=== PATIENT | male | born 1945 | race Caucasian/White ===

== ENCOUNTER → 2017-09-27 | Outpatient (CLI) | payer MEDICARE, OTHER ==
[~2017-09-27] MED LIST: ALBU90OI INH; CLOP75; FISH1000 PO; Lisinopril2.5 MG; Nitrostat0.3 MG SL; Norco 5-325 Ta1 EACH PO; PRED20 PO; ROSU10TA; TAMS.4ER; Tasprin325 MG PO
[2017-09-27 18:26] LABS: BASOPHILS ABSOLUTE AUTO 0.04 K/mm3 (0.00-0.23); BASOPHILS PERCENT AUTO 1 % (0-2); EOSINOPHILS ABSOLUTE AUTO 0.05 K/mm3 (0.00-0.68); EOSINOPHILS PERCENT AUTO 1 % (0-6); Hematocrit 47.4 % (37.0-53.0); Hemoglobin 16.7 g/dL (13.5-17.5); IMMATURE GRAN ABSOLUTE AUTO 0.04 K/mm3 (0.00-0.10); IMMATURE GRAN PERCENT AUTO 1 % (0-1); LYMPHOCYTES ABSOLUTE AUTO 1.63 K/mm3 (0.84-5.20); LYMPHOCYTES PERCENT AUTO 21 % (21-46); MONOCYTES ABSOLUTE AUTO 0.77 K/mm3 (0.16-1.47); MONOCYTES PERCENT AUTO 10 % (4-13); Mean Corpuscular HGB 32.3 pg (26.0-34.0); Mean Corpuscular HGB Conc 35.2 g/dL (31.5-36.5); Mean Corpuscular Volume 92 fL (80-100); Mean Platelet Volume 9.4 fL (9.1-12.4); NEUTROPHILS PERCENT AUTO 67 % (41-73); Platelet Count 203 K/mm3 (150-400); RDW Coefficient Variation 12.1 % (11.7-14.2); RDW Standard Deviation 40.6 fL (35.1-46.3); Red Blood Cell Count 5.17 M/mm3 (4.30-5.90); White Blood Cell Count 7.73 K/mm3 (4.00-11.30)
[2017-09-27 18:36] LABS: Alanine Aminotransfer (ALT/SGP 20 U/L (12-78); Albumin, Blood 4.3 g/dL (3.4-5.0); Albumin/Globulin Ratio 1.4 (0.8-1.8); Alk Phos 84 U/L (40-126); Anion Gap 9 mmol/L (6-16); Aspartate Aminotrans (AST/SGOT 17 U/L (12-37); Bilirubin, Total 0.9 mg/dL (0.1-1.0); Blood Urea Nitrogen 13 mg/dL (8-24); Bun/Creatinine Ratio 13.3 (12.0-20.0); CO2, Blood 27 mmol/L (21-32); Calcium, Blood 9.4 mg/dL (8.5-10.1); Chloride, Blood 100 mmol/L (98-108); Creatinine, Blood 0.98 mg/dL (0.60-1.20); Globulin, Blood 3.1 g/dL (2.2-4.0); Glomerular Filtration Rate >60 (60-); Glucose, Blood 111 mg/dL (70-99); Potassium, Blood 4.2 mmol/L (3.5-5.5); Sodium, Blood 136 mmol/L (136-145); Total Protein, Blood 7.4 g/dL (6.4-8.2)
== END ==
LOC: LAB SHORT 18:22 → LAB EV 18:22
PROVIDERS: Nurse Practitioner
DX: R63.4 Abnormal weight loss (principal)
CPT/HCPCS: 80053; 83690; 85025

== ENCOUNTER 2018-03-10 19:54 | Inpatient (IN) | payer MEDICARE, OTHER ==
[~2018-03-10] VITALS: Ht 175.3 cm; Wt 50.3 kg
[~2018-03-10 19:54] MED LIST changes: +ALBU2.5V5 NEB; +ANORO ELLIPTA1 EACH INH; +Amiodarone HCl200 MG PO; +CARV3.125 PO; +CLOP75 PO; +DOCU100 PO; +FISH OIL + D31 EACH PO; -FISH1000 PO; +GAVILAX17 GM PO; +LISI5 PO; +NITR.8TP TOP; +Nitroglycerin0.4 MG SL; +OXYC5 PO; +POTCHL10ER PO; -ROSU10TA; +ROSU10TA PO; +SPIR25 PO; -TAMS.4ER; +TAMS.4ER PO; +TORSE20 PO
[2018-03-10 21:50] LABS: Alanine Aminotransfer (ALT/SGP 22 U/L (12-78); Albumin, Blood 2.5 g/dL (3.4-5.0); Albumin/Globulin Ratio 0.7 (0.8-1.8); Alk Phos 88 U/L (50-136); Anion Gap 7 mmol/L (6-16); Aspartate Aminotrans (AST/SGOT 20 U/L (12-37); Bilirubin, Total 0.4 mg/dL (0.1-1.0); Blood Urea Nitrogen 16 mg/dL (8-24); Bun/Creatinine Ratio 20.7 (12.0-20.0); CO2, Blood 27 mmol/L (21-32); Calcium, Blood 8.4 mg/dL (8.5-10.1); Chloride, Blood 100 mmol/L (98-108); Creatinine, Blood 0.77 mg/dL (0.60-1.20); Globulin, Blood 3.7 g/dL (2.2-4.0); Glomerular Filtration Rate >60 (60-); Glucose, Blood 117 mg/dL (70-99); Potassium, Blood 4.7 mmol/L (3.5-5.5); Sodium, Blood 134 mmol/L (136-145); Total Protein, Blood 6.2 g/dL (6.4-8.2)
[2018-03-10 22:09] LABS: BASOPHILS ABSOLUTE AUTO 0.03 K/mm3 (0.00-0.23); BASOPHILS PERCENT AUTO 0 % (0-2); EOSINOPHILS ABSOLUTE AUTO 0.06 K/mm3 (0.00-0.68); EOSINOPHILS PERCENT AUTO 1 % (0-6); Hematocrit 38.2 % (37.0-53.0); Hemoglobin 12.6 g/dL (13.5-17.5); IMMATURE GRAN ABSOLUTE AUTO 0.03 K/mm3 (0.00-0.10); IMMATURE GRAN PERCENT AUTO 0 % (0-1); LYMPHOCYTES ABSOLUTE AUTO 0.46 K/mm3 (0.84-5.20); LYMPHOCYTES PERCENT AUTO 6 % (21-46); MONOCYTES PERCENT AUTO 9 % (4-13); Mean Corpuscular Volume 100 fL (80-100); Mean Platelet Volume 9.1 fL (9.1-12.4); NEUTROPHILS ABSOLUTE AUTO 6.47 K/mm3 (1.96-9.15); NEUTROPHILS PERCENT AUTO 84 % (41-73); Platelet Count 260 K/mm3 (150-400); RDW Coefficient Variation 14.9 % (11.7-14.2); Red Blood Cell Count 3.82 M/mm3 (4.30-5.90); White Blood Cell Count 7.75 K/mm3 (4.00-11.30)
[2018-03-10] MEDS ORDERED: ENTRESTO 24 MG1 EACH PO (22:58)
[2018-03-10] MEDS ORDERED: TRAZ50 PO (22:59)
[2018-03-10] MEDS ORDERED: METO25ER PO (22:59)
[2018-03-11 02:21] LABS: Adenovirus Not Detected (NOT DETECT); Bordetella pertussis Not Detected (NOT DETECT); Chlamydophila pneumoniae Not Detected (NOT DETECT); Coronavirus 229E Not Detected (NOT DETECT); Coronavirus HKU1 Not Detected (NOT DETECT); Coronavirus NL63 Not Detected (NOT DETECT); Coronavirus OC43 Not Detected (NOT DETECT); Human Metapneumovirus Not Detected (NOT DETECT); Human Rhinovirus/Enterovirus Not Detected (NOT DETECT); Influenza A/2009-H1 Not Detected (NOT DETECT); Influenza A/H1 Not Detected (NOT DETECT); Influenza A/H3 Not Detected (NOT DETECT); Influenza B Not Detected (NOT DETECT); Mycoplasma pneumoniae Not Detected (NOT DETECT); Parainfluenza Virus 1 Not Detected (NOT DETECT); Parainfluenza Virus 2 Not Detected (NOT DETECT); Parainfluenza Virus 3 Not Detected (NOT DETECT); Parainfluenza Virus 4 Not Detected (NOT DETECT); Respiratory Syncytial Virus Not Detected (NOT DETECT)
[2018-03-11 03:40] LABS: Influenza A Not Detected (NOT DETECT)
[2018-03-11 04:19] LABS: Hematocrit 37.5 % (37.0-53.0); Hemoglobin 12.3 g/dL (13.5-17.5); Mean Corpuscular HGB 32.7 pg (26.0-34.0); Mean Corpuscular HGB Conc 32.8 g/dL (31.5-36.5); Mean Corpuscular Volume 100 fL (80-100); Mean Platelet Volume 8.9 fL (9.1-12.4); Platelet Count 233 K/mm3 (150-400); RDW Coefficient Variation 14.9 % (11.7-14.2); RDW Standard Deviation 55.3 fL (35.1-46.3); Red Blood Cell Count 3.76 M/mm3 (4.30-5.90)
[2018-03-11 04:37] LABS: Alanine Aminotransfer (ALT/SGP 20 U/L (12-78); Albumin, Blood 2.3 g/dL (3.4-5.0); Albumin/Globulin Ratio 0.6 (0.8-1.8); Alk Phos 76 U/L (50-136); Anion Gap 8 mmol/L (6-16); Aspartate Aminotrans (AST/SGOT 10 U/L (12-37); Bilirubin, Total 0.4 mg/dL (0.1-1.0); Blood Urea Nitrogen 14 mg/dL (8-24); Bun/Creatinine Ratio 17.1 (12.0-20.0); CO2, Blood 28 mmol/L (21-32); Calcium, Blood 8.1 mg/dL (8.5-10.1); Chloride, Blood 101 mmol/L (98-108); Creatinine, Blood 0.82 mg/dL (0.60-1.20); Globulin, Blood 3.6 g/dL (2.2-4.0); Glomerular Filtration Rate >60 (60-); Glucose, Blood 114 mg/dL (70-99); Potassium, Blood 3.5 mmol/L (3.5-5.5); Sodium, Blood 137 mmol/L (136-145); Total Protein, Blood 5.9 g/dL (6.4-8.2)
[2018-03-11 04:39] LABS: Troponin I 0.064 ng/mL (0.000-0.040)
[2018-03-11 09:24] LABS: Troponin I 0.07 ng/mL (0.000-0.040)
[2018-03-12 05:46] LABS: Anion Gap 9 mmol/L (6-16); Blood Urea Nitrogen 21 mg/dL (8-24); Bun/Creatinine Ratio 26.2 (12.0-20.0); CO2, Blood 29 mmol/L (21-32); Calcium, Blood 8.3 mg/dL (8.5-10.1); Chloride, Blood 100 mmol/L (98-108); Glomerular Filtration Rate >60 (60-); Glucose, Blood 109 mg/dL (70-99); Sodium, Blood 138 mmol/L (136-145)
[2018-03-13 06:53] LABS: Anion Gap 7 mmol/L (6-16); Blood Urea Nitrogen 25 mg/dL (8-24); Bun/Creatinine Ratio 31.7 (12.0-20.0); CO2, Blood 27 mmol/L (21-32); Calcium, Blood 8.5 mg/dL (8.5-10.1); Chloride, Blood 101 mmol/L (98-108); Creatinine, Blood 0.79 mg/dL (0.60-1.20); Glomerular Filtration Rate >60 (60-); Glucose, Blood 98 mg/dL (70-99); Potassium, Blood 4.6 mmol/L (3.5-5.5); Sodium, Blood 135 mmol/L (136-145)
[2018-03-13] MEDS ORDERED: ACET325 PO (13:22)
[2018-03-13] MEDS ORDERED: DOCU100 PO (13:23)
[2018-03-13] MEDS ORDERED: CARV3.125 PO (13:24)
[2018-03-13] MEDS ORDERED: SYNTHROID25 MCG PO (13:26)
[2018-03-13] MEDS ORDERED: SPIR25 PO (13:28)
[2018-03-13] MEDS ORDERED: ASPI81CH PO (13:28)
== END 2018-03-13 14:19 | disposition home or self-care (01) | DRG 291 ==
LOC: ER 19:54 → MEDS 22:55
PROVIDERS: Emergency Medicine; Internal Medicine
DX: I11.0 Hypertensive heart disease with heart failure (principal); J96.01 Acute respiratory failure with hypoxia; Z68.1 Body mass index [BMI] 19.9 or less, adult; J98.11 Atelectasis; E44.0 Moderate protein-calorie malnutrition; R64 Cachexia; I50.41 Acute combined systolic (congestive) and diastolic (congestive) heart failure; E78.5 Hyperlipidemia, unspecified; I25.10 Atherosclerotic heart disease of native coronary artery without angina pectoris; Z95.1 Presence of aortocoronary bypass graft; I95.9 Hypotension, unspecified; J44.9 Chronic obstructive pulmonary disease, unspecified; I25.5 Ischemic cardiomyopathy; N20.0 Calculus of kidney
CPT/HCPCS: 36415; 36416; 71046; 80048; 80053; 82550; 83605; 83880; 84145; 84443; 84484; 85025; 85027; 87040; 87070; 87106; 87205; 87486; 87581; 87633; 87798; 93005; 93010; 94640; 94760; 94761; 94762; 96365; 96366; 96375; 99285-25; J0696; J1650; J1940; J1956; J2543; J2930; J7040; J7050

== ENCOUNTER → 2018-05-05 | Outpatient (CLI) | payer MEDICARE, OTHER ==
[~2018-05-05] MED LIST changes: +ACET325 PO; +ASPI81CH PO; +ENTRESTO 24 MG1 EACH PO; +METO25ER PO; +SYNTHROID25 MCG PO; +TRAZ50 PO
== END | disposition home or self-care (01) ==
LOC: LAB SHORT 07:35 → PLD 07:35
DX: L57.0 Actinic keratosis (principal)
CPT/HCPCS: 88305

== ENCOUNTER 2018-06-03 09:23 | Inpatient (IN) | payer MEDICARE, OTHER ==
[~2018-06-03] VITALS: Ht 175.3 cm; Wt 58.5 kg
[~2018-06-03 09:23] MED LIST changes: -ENTRESTO 24 MG1 EACH PO; -POTCHL10ER PO; -TAMS.4ER PO
[2018-06-03 10:34] LABS: BASOPHILS ABSOLUTE AUTO 0.02 K/mm3 (0.00-0.23); BASOPHILS PERCENT AUTO 0 % (0-2); EOSINOPHILS PERCENT AUTO 0 % (0-6); Hematocrit 43.7 % (37.0-53.0); Hemoglobin 14.3 g/dL (13.5-17.5); IMMATURE GRAN ABSOLUTE AUTO 0.03 K/mm3 (0.00-0.10); IMMATURE GRAN PERCENT AUTO 0 % (0-1); LYMPHOCYTES ABSOLUTE AUTO 0.22 K/mm3 (0.84-5.20); LYMPHOCYTES PERCENT AUTO 3 % (21-46); MONOCYTES ABSOLUTE AUTO 0.72 K/mm3 (0.16-1.47); MONOCYTES PERCENT AUTO 10 % (4-13); Mean Corpuscular HGB 31.6 pg (26.0-34.0); Mean Corpuscular HGB Conc 32.7 g/dL (31.5-36.5); Mean Corpuscular Volume 97 fL (80-100); Mean Platelet Volume 9.8 fL (9.1-12.4); NEUTROPHILS ABSOLUTE AUTO 6.14 K/mm3 (1.96-9.15); NEUTROPHILS PERCENT AUTO 86 % (41-73); Platelet Count 179 K/mm3 (150-400); RDW Coefficient Variation 14.5 % (11.7-14.2); RDW Standard Deviation 51.6 fL (35.1-46.3); Red Blood Cell Count 4.53 M/mm3 (4.30-5.90); White Blood Cell Count 7.13 K/mm3 (4.00-11.30)
[2018-06-03 11:00] LABS: Alanine Aminotransfer (ALT/SGP 15 U/L (12-78); Albumin, Blood 3.8 g/dL (3.4-5.0); Albumin/Globulin Ratio 1.2 (0.8-1.8); Alk Phos 73 U/L (50-136); Anion Gap 7 mmol/L (6-16); Aspartate Aminotrans (AST/SGOT 6 U/L (12-37); Bilirubin, Total 0.6 mg/dL (0.1-1.0); Blood Urea Nitrogen 11 mg/dL (8-24); Bun/Creatinine Ratio 13.6 (12.0-20.0); CO2, Blood 26 mmol/L (21-32); Calcium, Blood 8.6 mg/dL (8.5-10.1); Chloride, Blood 103 mmol/L (98-108); Creatinine, Blood 0.81 mg/dL (0.60-1.20); Globulin, Blood 3.1 g/dL (2.2-4.0); Glomerular Filtration Rate >60 (60-); Glucose, Blood 123 mg/dL (70-99); Potassium, Blood 3.7 mmol/L (3.5-5.5); Sodium, Blood 136 mmol/L (136-145); Total Protein, Blood 6.9 g/dL (6.4-8.2); Troponin I 0.053 ng/mL (0.000-0.040)
[2018-06-03 11:03] LABS: BASOPHILS PERCENT MAN 0 % (0-2); EOSINOPHILS PERCENT MAN 0 % (0-6); LYMPHOCYTES ABSOLUTE MAN 0.21 K/mm3 (0.84-5.20); LYMPHOCYTES PERCENT MAN 3 % (21-46); MONOCYTES ABSOLUTE MAN 0.57 K/mm3 (0.16-1.47); MONOCYTES PERCENT MAN 8 % (4-13); NEUTROPHILS ABSOLUTE MAN 6.34 K/mm3 (1.96-9.15); SEG NEUTROPHILS PERCENT MAN 89 % (41-73); TOTAL CELLS COUNTED 100
[2018-06-03] MEDS ORDERED: TAMS.4ER PO ×2 (14:29→15:28)
[2018-06-03] MEDS ORDERED: ROSU10TA PO (14:29)
[2018-06-03] MEDS ORDERED: ENTRESTO 24 MG1 EACH PO ×2 (14:30→15:29)
[2018-06-03] MEDS ORDERED: QVAR REDIHALE10.6 GM IH (14:32)
[2018-06-03] MEDS ORDERED: ALBU3IS INH (15:28)
[2018-06-03] MEDS ORDERED: ASPI81CH PO (15:30)
[2018-06-03] MEDS ORDERED: Synthroid50 MCG PO (15:30)
[2018-06-03] MEDS ORDERED: POTCHL10ER PO (15:30)
[2018-06-03] MEDS ORDERED: TRAZ50 PO (15:32)
[2018-06-03] MEDS ORDERED: SPIR25 PO (15:34)
[2018-06-03] MEDS ORDERED: NITR.6SL SL (15:42)
[2018-06-03] MEDS ORDERED: CLOP75 PO (16:23)
[2018-06-03] MEDS ORDERED: METO25ER PO (16:23)
[2018-06-03] MEDS ORDERED: DOCU100 PO (16:24)
[2018-06-04 05:55] LABS: BASOPHILS ABSOLUTE AUTO 0.01 K/mm3 (0.00-0.23); BASOPHILS PERCENT AUTO 0 % (0-2); EOSINOPHILS PERCENT AUTO 0 % (0-6); Hematocrit 42.4 % (37.0-53.0); Hemoglobin 14.3 g/dL (13.5-17.5); IMMATURE GRAN ABSOLUTE AUTO 0.05 K/mm3 (0.00-0.10); IMMATURE GRAN PERCENT AUTO 1 % (0-1); LYMPHOCYTES ABSOLUTE AUTO 0.29 K/mm3 (0.84-5.20); LYMPHOCYTES PERCENT AUTO 3 % (21-46); MONOCYTES ABSOLUTE AUTO 0.37 K/mm3 (0.16-1.47); MONOCYTES PERCENT AUTO 4 % (4-13); Mean Corpuscular HGB 31.4 pg (26.0-34.0); Mean Corpuscular HGB Conc 33.7 g/dL (31.5-36.5); Mean Platelet Volume 9.9 fL (9.1-12.4); NEUTROPHILS ABSOLUTE AUTO 9.56 K/mm3 (1.96-9.15); NEUTROPHILS PERCENT AUTO 93 % (41-73); Platelet Count 195 K/mm3 (150-400); RDW Standard Deviation 51.8 fL (35.1-46.3); Red Blood Cell Count 4.55 M/mm3 (4.30-5.90); White Blood Cell Count 10.28 K/mm3 (4.00-11.30)
[2018-06-04 05:56] LABS: Mean Corpuscular Volume 93 fL (80-100)
[2018-06-04 06:10] LABS: Anion Gap 9 mmol/L (6-16); Blood Urea Nitrogen 18 mg/dL (8-24); Bun/Creatinine Ratio 20.5 (12.0-20.0); CO2, Blood 27 mmol/L (21-32); Chloride, Blood 99 mmol/L (98-108); Creatinine, Blood 0.88 mg/dL (0.60-1.20); Glomerular Filtration Rate >60 (60-); Glucose, Blood 132 mg/dL (70-99); Potassium, Blood 3.7 mmol/L (3.5-5.5); Sodium, Blood 135 mmol/L (136-145)
--- NOTE | 2018-06-04 10:51 | NUR ---
REMOVED 02 FROM PT LYING IN BED ON RA, PT SATS 93%. AMBULATED 100 FEET. UPON RETURNING TO ROOM, 02 SATS 94%.
--- NOTE | 2018-06-04 14:10 | NUR ---
pt resting in bed respirations easy on ra. spouse at bedside. pt wishes to be discharged today.
[2018-06-04] MEDS ORDERED: CEFD300 PO (16:19)
[2018-06-04] MEDS ORDERED: FURO20 PO (16:21)
[2018-06-04] MEDS ORDERED: PRED10 PO (16:23)
--- NOTE | 2018-06-04 18:04 | NUR ---
discharged PT DC'D. REVIEWED DC PAPERWORK; PT AND SPOUSE VERBALIZED UNDERSTANDING. DC'D IV, CATHETER INTACT. CALLED PRESCRIPTIONS IN TO [facility] PER PT REQUEST. PT LEFT UNIT IN WC ACCOMPANIED BY FAMILY W/POSSESSIONS AND DC PAPERWORK IN HAND.
== END 2018-06-04 17:30 | disposition home or self-care (01) | DRG 292 ==
LOC: ER 09:23 → ERHOLD 14:36 → SURS 21:02
PROVIDERS: Physician Assistant; ADMIT Internal Medicine
DX: I11.0 Hypertensive heart disease with heart failure (principal); J44.1 Chronic obstructive pulmonary disease with (acute) exacerbation; J44.0 Chronic obstructive pulmonary disease with (acute) lower respiratory infection; I24.8 Other forms of acute ischemic heart disease; I50.43 Acute on chronic combined systolic (congestive) and diastolic (congestive) heart failure; J20.9 Acute bronchitis, unspecified; I25.10 Atherosclerotic heart disease of native coronary artery without angina pectoris; E78.5 Hyperlipidemia, unspecified; I48.0 Paroxysmal atrial fibrillation; R49.0 Dysphonia; I25.5 Ischemic cardiomyopathy; Z95.1 Presence of aortocoronary bypass graft; Z87.891 Personal history of nicotine dependence; Z79.01 Long term (current) use of anticoagulants; Z79.82 Long term (current) use of aspirin; Z79.899 Other long term (current) drug therapy
CPT/HCPCS: 36415; 71046; 80048; 80053; 83880; 84484; 85025; 93005; 93010; 94640; 94760; 96374; 99285-25; J0696; J1650; J1940; J2930

== ENCOUNTER 2018-06-08 09:03 | Inpatient (IN) | payer MEDICARE, OTHER ==
[~2018-06-08] VITALS: Ht 167.6 cm; Wt 58.6 kg
[~2018-06-08 09:03] MED LIST changes: +ALBU3IS INH; +CEFD300 PO; +ENTRESTO 24 MG1 EACH PO; +FURO20 PO; +NITR.6SL SL; +POTCHL10ER PO; +PRED10 PO; +QVAR REDIHALE10.6 GM IH; +Synthroid50 MCG PO; +TAMS.4ER PO
[2018-06-08 09:25] LABS: PCO2 Arterial 61.3 mmHg (35-45); PO2 Arterial 63.8 mmHg (80-100); pH Blood Arterial 7.23 (7.35-7.45)
[2018-06-08 09:28] LABS: BASOPHILS ABSOLUTE AUTO 0.01 K/mm3 (0.00-0.23); BASOPHILS PERCENT AUTO 0 % (0-2); EOSINOPHILS ABSOLUTE AUTO 0.04 K/mm3 (0.00-0.68); EOSINOPHILS PERCENT AUTO 1 % (0-6); Hematocrit 48.9 % (37.0-53.0); Hemoglobin 15.7 g/dL (13.5-17.5); IMMATURE GRAN ABSOLUTE AUTO 0.02 K/mm3 (0.00-0.10); IMMATURE GRAN PERCENT AUTO 0 % (0-1); LYMPHOCYTES ABSOLUTE AUTO 2.47 K/mm3 (0.84-5.20); LYMPHOCYTES PERCENT AUTO 33 % (21-46); MONOCYTES ABSOLUTE AUTO 0.82 K/mm3 (0.16-1.47); MONOCYTES PERCENT AUTO 11 % (4-13); Mean Corpuscular HGB 31.3 pg (26.0-34.0); Mean Corpuscular HGB Conc 32.1 g/dL (31.5-36.5); Mean Platelet Volume 10.2 fL (9.1-12.4); NEUTROPHILS ABSOLUTE AUTO 4.22 K/mm3 (1.96-9.15); NEUTROPHILS PERCENT AUTO 56 % (41-73); Platelet Count 207 K/mm3 (150-400); RDW Coefficient Variation 14.1 % (11.7-14.2); RDW Standard Deviation 51.4 fL (35.1-46.3); Red Blood Cell Count 5.02 M/mm3 (4.30-5.90); White Blood Cell Count 7.58 K/mm3 (4.00-11.30)
[2018-06-08 09:35] LABS: Mean Corpuscular Volume 97 fL (80-100)
[2018-06-08 09:48] LABS: Alanine Aminotransfer (ALT/SGP 43 U/L (12-78); Albumin, Blood 3.4 g/dL (3.4-5.0); Albumin/Globulin Ratio 1.1 (0.8-1.8); Alk Phos 71 U/L (50-136); Anion Gap 7 mmol/L (6-16); Aspartate Aminotrans (AST/SGOT 40 U/L (12-37); Bilirubin, Total 0.6 mg/dL (0.1-1.0); Blood Urea Nitrogen 17 mg/dL (8-24); Bun/Creatinine Ratio 18.1 (12.0-20.0); CO2, Blood 27 mmol/L (21-32); Calcium, Blood 8.5 mg/dL (8.5-10.1); Chloride, Blood 106 mmol/L (98-108); Creatinine, Blood 0.94 mg/dL (0.60-1.20); Glomerular Filtration Rate >60 (60-); Glucose, Blood 183 mg/dL (70-99); Magnesium, Blood 2.4 mg/dL (1.6-2.4); Potassium, Blood 4.4 mmol/L (3.5-5.5); Sodium, Blood 140 mmol/L (136-145); Total Protein, Blood 6.4 g/dL (6.4-8.2); Troponin I 0.057 ng/mL (0.000-0.040)
[2018-06-08 11:04] LABS: PCO2 Arterial 48.3 mmHg (35-45); PO2 Arterial 173 mmHg (80-100); pH Blood Arterial 7.32 (7.35-7.45)
--- NOTE | 2018-06-08 12:30 | NUR ---
INITIAL ASSESSMENT PATIENT ARRIVED TO UNIT FROM ER AT 1210 WITH AT BEDSIDE. PATIENT ALERT AND ORIENTED X 4, AFEBRILE. PATIENT APPEARS ILL LOOKING AND DECONDITIONED. PATIENT WEAK BUT ABLE TO MOVE ALL EXTREMITIES. PATIENT REPORTS N/T IN FEET BUT THAT IT IS NORMAL FOR HIM. PATIENT DENIES PAIN. PATIENT SATTING 92% AND GREATER ON BIPAP 12/8, 30% FIO2. LUNGS DIMINISHED WITH EXPIRATORY COARSENESS T/O. EXPIRATORY WHEEZES ALSO NOTED IN LOWER LOBES. PATIENT STATES THAT HE HAS OCCASIONAL PRODUCTIVE COUGH AND WILL COUGH UP SMALL AMOUNTS OF THICK, GREEN SPUTUM FROM TIME TO TIME. PATIENT IN ST WITH FREQUENT PVCS, HR LOW 100S TO 120S. BP STABLE. GI WNL. WNL. BLADDER SCAN SHOWED 176 ML URINE LEFT IN BLADDER AFTER VOIDING SO NO CATHETER PLACED AT THIS TIME. URINE LIGHT YELLOW IN COLOR. PATIENT USING URINAL ON OWN. SKIN COLD AND PALE. NO WOUND NOTED AT THIS TIME. IVS FLUSHED AND SALINE LOCKED. BED LOW, CALL LIGHT IN REACH. PATIENT ORIENTED TO UNIT AND CALL SYSTEM. WILL CONTINUE TO MONITOR PATIENT FREQUENTLY THROUGHOUT SHIFT.
[2018-06-08] MEDS ORDERED: ROSU10TA PO (15:16)
[2018-06-08] MEDS ORDERED: QVAR REDIHALE10.6 G1 INH (15:20)
[2018-06-08] MEDS ORDERED: ANORO ELLIPTA1 EACH INH (15:21)
--- NOTE | 2018-06-08 16:00 | NUR ---
VITAL SIGNS STABLE. PATIENT SATTING WELL ON 2 L NC. AFEBRILE. NO COMPLAINTS. NO OTHER ACUTE CHANGES TO NOTE ON AT THIS TIME. WILL CONTINUE TO MONITOR.
[2018-06-08 16:40] LABS: Influenza A Negative (NEGATIVE); Influenza B Negative (NEGATIVE)
--- NOTE | 2018-06-08 17:31 | NUR ---
DR. ESPINOSA NOTIFIED THAT PATIENT IS FLU NEGATIVE. WELL THAT THE PATIENT HAS BEEN SATTING WELL ON 2 L NC.
--- NOTE | 2018-06-08 18:33 | NUR ---
SHIFT SUMMARY PATIENT REMAINS ALERT AND ORIENTED X 4. [place]. SPEAKING TO WAREHOUSE SORTER CURRENTLY. PATIENT REMAINS AFEBRILE. PATIENT COMPLAINED OF HEADACHE OT- PRN TYLENOL GIVEN AND PATIENT REPORTED RELIEF. PATIENT ON BIPAP WHEN CAME TO UNIT; 03/01, 30% FIO2. PATIENT CHANGED TO 2 L NC AROUND 1600 AND HAS BEEN SATTING ABOVE 92%. LUNGS NOW DIMINISHED THROUGHOUT. EXPIRATORY WHEEZE NOTED IN BILL. PATIENT CONTINUES TO HAVE OCCASIONAL PRODUCTIVE COUGH- SMALL AMOUNT OF THICK, GREEN SPUTUM. PATIENT HAS REMAINED IN ST WITH FREQUENT PVCS. HR LOW 100S TO 120S. BP HAS REMAINED STABLE. ANTIEMBOLISM STOCKINGS IN PLACE. GI REMAINED WNL. REMAINS WNL. PATIENT VOIDING LIGHT YELLOW URINE INTO BEDSIDE URINAL. NO CHANGES IN SKIN. NS INFUSING TKO WITH ANTIBIOTICS. PATIENT RECEIVED FLU SHOT. FLU SWAB SENT AND CAME BACK NEGATIVE. PATIENT HAS NO COMPLAINTS AT THIS TIME. BED LOW, CALL LIGHT IN REACH. WILL CONTINUE TO MONITOR PATIENT UNTIL REPORT GIVEN TO ONCOMING SECURITY FIELD SUPERVISOR NURSE SHORTLY.
--- NOTE | 2018-06-08 19:53 | NUR ---
CARE ASSUMED - NITRO PLACEMENT REPORT RECEIVED, CARE ASSUMED AT 1900 FROM JI HILTON. SPOKE WITH DR. ESPINOSA WITH LIDA RN PRESENT TO CONFIRM NITRO ORDER AND SHARE PT'S MOST RECENT VITAL SIGNS. VITALS INITIALLY STABLE. HR SINUS TACH WITH FREQUENT PVC'S. DR. ESPINOSA AWARE. NITRO PLACED AND PT'S BP RAPIDLY DECREASED. SEE FLOWSHEET. PT REPORTS FEELING LIGHTHEADED BUT CONTINUES TO BE CALM AND TALKATIVE. REPORTS SLIGHT SHORTNESS OF BREATH BUT 02 SATURATIONS IN 90'S ON 2 LPM NASAL CANNULA. RR 12-24. PT DENIES CHEST PAIN. SEE FULL SHIFT ASSESSMENT. VITALS Q15 UNTIL STABLE. PT LEFT WITH CALL LIGHT IN REACH, AGREES TO CALL APPROPRIATELY FOR NEEDS.
--- NOTE | 2018-06-08 20:08 | NUR ---
DR. ESPINOSA COMMUNICATION DR. ESPINOSA UPDATED REGARDING NITRO PLACEMENT, BLOOD PRESSURE, HR & PVC'S. NEW ORDER TO DC FUTURE NITRO DOSES. PER DR. ESPINOSA, CONTINUE WITH SCHEDULED METOPROLOL IF SYSTOLIC RECOVERS TO GREATER THAN 100.
--- NOTE | 2018-06-08 20:30 | NUR ---
DR. ESPINOSA COMMUNICATION DISCUSSED PT'S LABS INCLUDING LACTIC AND BNP WITH DR. ESPINOSA. NEW ORDER FOR 250 ML/HR BOLUS. CONTINUE WITH SCHEDULED LABS IN MORNING ORDERED.
[2018-06-09 02:53] LABS: BASOPHILS PERCENT AUTO 0 % (0-2); EOSINOPHILS PERCENT AUTO 0 % (0-6); Hematocrit 41.7 % (37.0-53.0); Hemoglobin 13.9 g/dL (13.5-17.5); IMMATURE GRAN ABSOLUTE AUTO 0.01 K/mm3 (0.00-0.10); IMMATURE GRAN PERCENT AUTO 0 % (0-1); LYMPHOCYTES ABSOLUTE AUTO 0.41 K/mm3 (0.84-5.20); LYMPHOCYTES PERCENT AUTO 9 % (21-46); MONOCYTES ABSOLUTE AUTO 0.27 K/mm3 (0.16-1.47); MONOCYTES PERCENT AUTO 6 % (4-13); Mean Corpuscular HGB Conc 33.3 g/dL (31.5-36.5); Mean Corpuscular Volume 96 fL (80-100); Mean Platelet Volume 10.3 fL (9.1-12.4); NEUTROPHILS ABSOLUTE AUTO 4.05 K/mm3 (1.96-9.15); NEUTROPHILS PERCENT AUTO 86 % (41-73); Platelet Count 158 K/mm3 (150-400); RDW Coefficient Variation 14.5 % (11.7-14.2); RDW Standard Deviation 50.5 fL (35.1-46.3); Red Blood Cell Count 4.34 M/mm3 (4.30-5.90); White Blood Cell Count 4.74 K/mm3 (4.00-11.30)
[2018-06-09 03:13] LABS: Albumin, Blood 3.2 g/dL (3.4-5.0); Anion Gap 8 mmol/L (6-16); Blood Urea Nitrogen 23 mg/dL (8-24); Bun/Creatinine Ratio 27.7 (12.0-20.0); CO2, Blood 26 mmol/L (21-32); Calcium, Blood 8.4 mg/dL (8.5-10.1); Chloride, Blood 105 mmol/L (98-108); Creatinine, Blood 0.83 mg/dL (0.60-1.20); Glomerular Filtration Rate >60 (60-); Glucose, Blood 136 mg/dL (70-99); Phosphorus, Blood 3.7 mg/dL (2.5-4.9); Potassium, Blood 4.5 mmol/L (3.5-5.5); Sodium, Blood 139 mmol/L (136-145); Troponin I 0.109 ng/mL (0.000-0.040)
--- NOTE | 2018-06-09 05:04 | NUR ---
DR. ESPINOSA COMMUNICATION UPDATED DR. ESPINOSA ON EVENTS OF NIGHT INCLUDING NO METOPROLOL ADMINISTRATION, REPEAT LACTIC, REPEAT TROPONIN, BLOOD PRESSURES, HEART RATE AND PVCS. CONTINUE TO MONITOR PER ORDERS.
--- NOTE | 2018-06-09 06:03 | NUR ---
SUMMARY SEE PREVIOUS NOTES. OTHERWISE, PT HAS TOLERATED BIPAP WELL WHEN PROVIDED WITH FREQUENT BREAKS. PT HAS CALLED APPROPRIATELY FOR NEEDS, REPOSITIONED SELF IN BED. PT HAS DENIED PAIN THROUGHOUT NIGHT. SEE ASSESSMENTS/FLOWSHEETS.
--- NOTE | 2018-06-09 10:25 | NUR ---
0810 PT SETTING UP IN BED ON O2 2L W/O DISTRESS. RT IN TO WORK WITH PT AND THEN MOVED TO RA AND SATING WELL. PT DENIES ANY PAIN OR DISTRESS. VOIDING WELL OR ORANGE CLEAR URINE THIS AM. PO IN SMALL AMOUNTS.
--- NOTE | 2018-06-09 12:15 | NUR ---
1210 REPORT CALLED TO REECE WORKMAN AND WILL TRANSFER PT TO 340 VIA W/C HARLEEN AFTER LUUNCH.
--- NOTE | 2018-06-09 16:17 | NUR ---
Mr. Lundberg has a karen josselyn in an active and present God. We spoke at length about his josselyn. He responded well to gentle spiritual direction and prayer. He has a strong, loving marriage and good support of friends. He beleives he will recover and return home soon. I will remain available.
--- NOTE | 2018-06-09 18:06 | NUR ---
ALERT AND ORIENTED. ARRIVES AFTER LUNCH FROM ICU. STEADY GAIT. IV PATENT. LOW HARSH SOUNDING VOICE POST INTUBATION. LUNGS DIM T/O .PLEASANT. COOPERATIVE. ABLE TO MAKE NEEDS KNOWN. BED IN LOW POSITION. CALL LIGHT WITHIN REACH. TELE ON. WILL CONTINUE TO MONITOR.
[2018-06-10 05:12] LABS: BASOPHILS PERCENT AUTO 0 % (0-2); EOSINOPHILS PERCENT AUTO 0 % (0-6); Hemoglobin 14.1 g/dL (13.5-17.5); IMMATURE GRAN ABSOLUTE AUTO 0.04 K/mm3 (0.00-0.10); IMMATURE GRAN PERCENT AUTO 1 % (0-1); LYMPHOCYTES PERCENT AUTO 6 % (21-46); MONOCYTES PERCENT AUTO 5 % (4-13); Mean Corpuscular HGB 31.1 pg (26.0-34.0); Mean Corpuscular HGB Conc 32.8 g/dL (31.5-36.5); Mean Corpuscular Volume 95 fL (80-100); Mean Platelet Volume 10.2 fL (9.1-12.4); NEUTROPHILS ABSOLUTE AUTO 7.04 K/mm3 (1.96-9.15); NEUTROPHILS PERCENT AUTO 88 % (41-73); Platelet Count 169 K/mm3 (150-400); RDW Coefficient Variation 14.6 % (11.7-14.2); RDW Standard Deviation 51.1 fL (35.1-46.3); Red Blood Cell Count 4.54 M/mm3 (4.30-5.90); White Blood Cell Count 7.98 K/mm3 (4.00-11.30)
--- NOTE | 2018-06-10 05:15 | NUR ---
VSS, AFEBRILE, A/O, PLEASANT, LOW BP AT 2000, METOPROLOL HELD AT 2100, TELE: NSR/PAC/PVC, INDEPENDENT TO BS, JULY D/C TODAY. SLEPT WELL OVERNOC.
[2018-06-10 05:30] LABS: Albumin, Blood 3.2 g/dL (3.4-5.0); Anion Gap 8 mmol/L (6-16); Blood Urea Nitrogen 20 mg/dL (8-24); Bun/Creatinine Ratio 27.9 (12.0-20.0); CO2, Blood 25 mmol/L (21-32); Calcium, Blood 8.6 mg/dL (8.5-10.1); Chloride, Blood 105 mmol/L (98-108); Creatinine, Blood 0.72 mg/dL (0.60-1.20); Glomerular Filtration Rate >60 (60-); Glucose, Blood 131 mg/dL (70-99); Phosphorus, Blood 2.6 mg/dL (2.5-4.9); Potassium, Blood 4.3 mmol/L (3.5-5.5); Sodium, Blood 138 mmol/L (136-145)
--- NOTE | 2018-06-10 06:50 | NUR ---
VSS, AFEBRILE, ASYMPTOMATIC. PT HAD A 7 BEAT RUN OF V-TACH AT 0643 TODAY. NO COMPLAINTS, UNSUSTAINED, WILL REPORT TO ON-COMING SHIFT.
--- NOTE | 2018-06-10 12:40 | NUR ---
LEFT MESSAGE ON VOICE MAIL THAT PATIENT HAS DEVELOPED A TICKLE AND COUGH AT NIGHT. ADVISED [facility].AWAITING ORDERS
--- NOTE | 2018-06-10 18:21 | NUR ---
PATIENT ALERT AND ORIENTED. TO USE BIPAP IF NEEDED TONIGHT. MAY HAVE SLEEP STUDY TOMORROW NIGHT. TELE ON. HAS SOME ANXIETY AND WHEN SEES CONTINUOUS SAT MONITOR DROP TO 90% GETS ANXIOUS. WALKED IN HALLWAY X 2 ON OXYGEN W/WALKER AND STANDBY ASSIST. COOPERATIVE. ABLE TO MAKE NEEDS KNOWN. PLEASANT. WILL CONTINUE TO MONITOR.
--- NOTE | 2018-06-11 05:05 | NUR ---
VSS, AFEBRILE, A/O, INDEPENDENT, BPAP OVERNOC BUT PT REMOVES IT AT WILL, SLEPT WELL, NO COMPLAINTS, TELE COMPUTER SYSTEMS ARCHITECT REPORTS IMPROVEMENT IN THE FREQUENCY OF PVC'S - DROPPING FROM 15 - 20 PVC'S TO LESS THAN 5.
[2018-06-11 05:36] LABS: BASOPHILS PERCENT AUTO 0 % (0-2); EOSINOPHILS PERCENT AUTO 0 % (0-6); Hematocrit 40.7 % (37.0-53.0); Hemoglobin 13.6 g/dL (13.5-17.5); IMMATURE GRAN ABSOLUTE AUTO 0.03 K/mm3 (0.00-0.10); IMMATURE GRAN PERCENT AUTO 1 % (0-1); LYMPHOCYTES ABSOLUTE AUTO 0.46 K/mm3 (0.84-5.20); LYMPHOCYTES PERCENT AUTO 9 % (21-46); MONOCYTES ABSOLUTE AUTO 0.34 K/mm3 (0.16-1.47); MONOCYTES PERCENT AUTO 7 % (4-13); Mean Corpuscular HGB 31.2 pg (26.0-34.0); Mean Corpuscular HGB Conc 33.4 g/dL (31.5-36.5); Mean Corpuscular Volume 93 fL (80-100); NEUTROPHILS ABSOLUTE AUTO 4.31 K/mm3 (1.96-9.15); NEUTROPHILS PERCENT AUTO 84 % (41-73); Platelet Count 169 K/mm3 (150-400); RDW Coefficient Variation 14.7 % (11.7-14.2); RDW Standard Deviation 50.9 fL (35.1-46.3); Red Blood Cell Count 4.36 M/mm3 (4.30-5.90); White Blood Cell Count 5.14 K/mm3 (4.00-11.30)
[2018-06-11 05:57] LABS: Albumin, Blood 2.9 g/dL (3.4-5.0); Anion Gap 6 mmol/L (6-16); Blood Urea Nitrogen 24 mg/dL (8-24); Bun/Creatinine Ratio 29.5 (12.0-20.0); CO2, Blood 30 mmol/L (21-32); Calcium, Blood 8.4 mg/dL (8.5-10.1); Chloride, Blood 105 mmol/L (98-108); Creatinine, Blood 0.81 mg/dL (0.60-1.20); Glomerular Filtration Rate >60 (60-); Glucose, Blood 131 mg/dL (70-99); Phosphorus, Blood 3.5 mg/dL (2.5-4.9); Potassium, Blood 4.2 mmol/L (3.5-5.5); Sodium, Blood 141 mmol/L (136-145)
[2018-06-11 05:59] LABS: Troponin I 0.059 ng/mL (0.000-0.040)
--- NOTE | 2018-06-11 09:51 | NUR ---
AWARE 4 RUN VTACH FEW TIMES.
--- NOTE | 2018-06-11 16:49 | NUR ---
ADVISED BLD PRESS 95/60 PUSLE HIGH 90'S TO 100 W/ MANY PVC'S. HOLD; ENTRESTO, POTASSIUM, LASIX?? PER HOLD LASIX AND POTASSIUM.
--- NOTE | 2018-06-11 17:39 | NUR ---
ALERT AND ORIENTED. HAS AMBULATED DOWN HALLWAY W/NURSING STAFF AND WITH P.T. TOLERATED WELL. HAS BEEN OFF OXYGEN IN ROOM WITH SATS LOW TO MID 90'S. AWARE WILL HAVE NIGHT OXYMETRY TONIGHT. IV PATENT. TELE ON AND PER TECH FREQUENT PVC'S W/MD AWARE. INDEPENDENT IN ROOM. USES URINAL. BED IN LOW POSITION. CALL LIGHT WITHIN REACH. ABLE TO MAKE NEEDS KNOWN. WILL CONTINUE TO MONITOR.
--- NOTE | 2018-06-12 04:35 | NUR ---
VSS, AFEBRILE, A/O, INDEPENDENT. PT PARTICIPATED IN SLEEP STUDY OVERNOC. PT WAS NOT DISTURBED BY STAFF UNTIL AFTER 0500. NO COMPLAINTS.
[2018-06-12 06:00] LABS: BASOPHILS PERCENT AUTO 0 % (0-2); EOSINOPHILS PERCENT AUTO 0 % (0-6); Hematocrit 42.4 % (37.0-53.0); Hemoglobin 13.9 g/dL (13.5-17.5); IMMATURE GRAN ABSOLUTE AUTO 0.04 K/mm3 (0.00-0.10); IMMATURE GRAN PERCENT AUTO 1 % (0-1); LYMPHOCYTES ABSOLUTE AUTO 0.67 K/mm3 (0.84-5.20); LYMPHOCYTES PERCENT AUTO 13 % (21-46); MONOCYTES PERCENT AUTO 12 % (4-13); Mean Corpuscular HGB Conc 32.8 g/dL (31.5-36.5); Mean Corpuscular Volume 95 fL (80-100); Mean Platelet Volume 10.7 fL (9.1-12.4); NEUTROPHILS PERCENT AUTO 74 % (41-73); Platelet Count 172 K/mm3 (150-400); RDW Coefficient Variation 14.8 % (11.7-14.2); RDW Standard Deviation 51.9 fL (35.1-46.3); Red Blood Cell Count 4.48 M/mm3 (4.30-5.90); White Blood Cell Count 5.01 K/mm3 (4.00-11.30)
[2018-06-12 06:21] LABS: Albumin, Blood 2.8 g/dL (3.4-5.0); Anion Gap 4 mmol/L (6-16); Blood Urea Nitrogen 27 mg/dL (8-24); CO2, Blood 29 mmol/L (21-32); Calcium, Blood 8.3 mg/dL (8.5-10.1); Chloride, Blood 107 mmol/L (98-108); Glomerular Filtration Rate >60 (60-); Glucose, Blood 108 mg/dL (70-99); Phosphorus, Blood 2.8 mg/dL (2.5-4.9); Sodium, Blood 140 mmol/L (136-145)
--- NOTE | 2018-06-12 16:51 | NUR ---
DISCHARGE SUMMARY PT A&Ox4, CALM AND COOPERATIVE WITH CARE. PT UP IND IN ROOM AND WALKING IN HALLS. PT DENIES PAIN AND N/V DURING SHIFT. SOB WITH EXERTION, >90% ON RA AND NONPRODUCTIVE, VOICE CONTINUES TO BE HOARSE. SLEEP STUDY AND HOME O2 EVALUATION COMPLETED, PT DOES NOT QUALIFY AT THIS TIME. VSS. NO OTHER ACUTE CHAGNES NOTED DURING SHIFT. PT/SPOUSE EDUCATED ON DISCHARGE INSTRUCTIONS, MEDICATIONS AND FOLLOW UP APPOINTMENTS. PRESCRIPTIONS FAXED TO [facility] [place]. PT LEFT ROOM VIA WHEELCHAIR AT 1312. PT STABLE UPON DISCHARGE.
== END 2018-06-12 13:14 | disposition home or self-care (01) | DRG 871 ==
LOC: ER 09:03 → ICUE 10:00 → ICUW 10:00 → MEDS 11:49 → ICUE 12:10 → MEDS 06-09 12:57 → ENPENDDIS 06-12 11:15 → MEDS 06-12 13:14
PROVIDERS: Emergency Medicine; Family Medicine; Internal Medicine Critical Care Medicine; ADMIT Internal Medicine
DX: A41.9 Sepsis, unspecified organism (principal); J96.02 Acute respiratory failure with hypercapnia; J96.01 Acute respiratory failure with hypoxia; I50.43 Acute on chronic combined systolic (congestive) and diastolic (congestive) heart failure; J44.1 Chronic obstructive pulmonary disease with (acute) exacerbation; R65.20 Severe sepsis without septic shock; I11.0 Hypertensive heart disease with heart failure; I25.10 Atherosclerotic heart disease of native coronary artery without angina pectoris; Z95.5 Presence of coronary angioplasty implant and graft; I48.0 Paroxysmal atrial fibrillation; Z79.01 Long term (current) use of anticoagulants; E78.5 Hyperlipidemia, unspecified; Z79.82 Long term (current) use of aspirin
CPT/HCPCS: 36415; 36600; 71045; 80053; 80069; 82803; 83605; 83735; 83880; 84484; 85025; 87040; 87804; 90686; 93005; 93010; 94640; 94644; 94660; 94760; 94761; 94762; 96374; 97110; 97116; 97162; 97165; 97530; 99285-25; G0008; J1650; J1940; J2543; J2920; J3370; J7050

== ENCOUNTER 2019-03-03 22:08 | Inpatient (IN) | payer MEDICARE, OTHER ==
[~2019-03-03] VITALS: Ht 175.3 cm; Wt 59.6 kg
[~2019-03-03 22:08] MED LIST changes: +QVAR REDIHALE10.6 G1 INH
[2019-03-03 22:26] LABS: BASOPHILS ABSOLUTE AUTO 0.03 K/mm3 (0.00-0.23); BASOPHILS PERCENT AUTO 0 % (0-2); EOSINOPHILS ABSOLUTE AUTO 0.01 K/mm3 (0.00-0.68); EOSINOPHILS PERCENT AUTO 0 % (0-6); Hematocrit 43.9 % (37.0-53.0); Hemoglobin 14.7 g/dL (13.5-17.5); IMMATURE GRAN ABSOLUTE AUTO 0.06 K/mm3 (0.00-0.10); IMMATURE GRAN PERCENT AUTO 1 % (0-1); LYMPHOCYTES ABSOLUTE AUTO 0.57 K/mm3 (0.84-5.20); LYMPHOCYTES PERCENT AUTO 4 % (21-46); MONOCYTES ABSOLUTE AUTO 0.96 K/mm3 (0.16-1.47); MONOCYTES PERCENT AUTO 8 % (4-13); Mean Corpuscular HGB 32.6 pg (26.0-34.0); Mean Corpuscular HGB Conc 33.5 g/dL (31.5-36.5); Mean Corpuscular Volume 97 fL (80-100); Mean Platelet Volume 9.6 fL (9.1-12.4); NEUTROPHILS ABSOLUTE AUTO 11.24 K/mm3 (1.96-9.15); NEUTROPHILS PERCENT AUTO 87 % (41-73); Platelet Count 176 K/mm3 (150-400); RDW Coefficient Variation 12.2 % (11.7-14.2); RDW Standard Deviation 44.2 fL (35.1-46.3); Red Blood Cell Count 4.51 M/mm3 (4.30-5.90); White Blood Cell Count 12.87 K/mm3 (4.00-11.30)
[2019-03-03 22:44] LABS: Alanine Aminotransfer (ALT/SGP 15 U/L (12-78); Albumin, Blood 3.7 g/dL (3.4-5.0); Albumin/Globulin Ratio 1.3 (0.8-1.8); Alk Phos 71 U/L (50-136); Anion Gap 8 mmol/L (6-16); Aspartate Aminotrans (AST/SGOT 13 U/L (12-37); Bilirubin, Total 0.8 mg/dL (0.1-1.0); Blood Urea Nitrogen 15 mg/dL (8-24); Bun/Creatinine Ratio 17.8 (12.0-20.0); CO2, Blood 25 mmol/L (21-32); Calcium, Blood 8.7 mg/dL (8.5-10.1); Chloride, Blood 101 mmol/L (98-108); Creatinine, Blood 0.84 mg/dL (0.60-1.20); Globulin, Blood 2.9 g/dL (2.2-4.0); Glomerular Filtration Rate >60 (60-); Glucose, Blood 172 mg/dL (70-99); Potassium, Blood 3.7 mmol/L (3.5-5.5); Sodium, Blood 134 mmol/L (136-145); Total Protein, Blood 6.6 g/dL (6.4-8.2); Troponin I 0.021 ng/mL (0.000-0.040)
--- NOTE | 2019-03-04 00:55 | NUR ---
DR. COYNE NOTIFIED: RE: BP'S 70'S/40'S AND LACTIC ACID OF 5.2. NEW ORDERS: GIVE NS 500mL/BOLUS NOW, STAT BNP, REPEAT NS 500mL/BOLUS IF NEEDED.
--- NOTE | 2019-03-04 01:44 | NUR ---
ASSUME CARE RECEIVED REPORT FROM JI MOLINA (ED). PATIENT CAME UP VIA STRETCHER AT 2355. PATIENT ALERT AND ORIENTED, FOLLOWS COMMANDS, ANSWERS QUESTIONS APPROPRIATELY. PATIENT ON 2L NC, SATS ABOVE 92%. PATIENT REPORTS EASIER WOB/LESS SHORTNESS OF BREATH. PATIENT DENIES PAIN. PT BP 70S/50S. LACTIC ELEVATED. HOSPITALIST NOTIFIED, 500ML BOLUS OF NS ORDERED. PATIENT RECEIVING MAG SULFATE, KCL, CALCIUM GLUCONATE WELL. PT TEMP 98.9 ON ADMISSION. PATIENT STATES HE ATE EARLIER IN THE DAY, LAST BM 03/03. PT REPORTS POOR APPETITE IN LAST FEW DAYS. DENIES N/V. RESP PANEL ORDERED AND COLLECTED. LUNG SOUNDS DIMINISHED THROUGHOUT. WILL CONTINUE TO MONITOR.
--- NOTE | 2019-03-04 02:18 | NUR ---
BP STATUS PT BP 70S/50S. BNP 454. MD STAN[place]ORD NOTIFIED. 500ML BOLUS AND LEVOPHED GTT ORDERED. WILL CONTINUE TO MONITOR.
[2019-03-04 03:15] LABS: Adenovirus Not Detected (NOT DETECT); Bordetella pertussis Not Detected (NOT DETECT); Chlamydophila pneumoniae Not Detected (NOT DETECT); Coronavirus 229E Not Detected (NOT DETECT); Coronavirus HKU1 Not Detected (NOT DETECT); Coronavirus NL63 Not Detected (NOT DETECT); Coronavirus OC43 Not Detected (NOT DETECT); Human Metapneumovirus Not Detected (NOT DETECT); Human Rhinovirus/Enterovirus Detected (NOT DETECT); Influenza A Not Detected (NOT DETECT); Influenza A/2009-H1 Not Detected (NOT DETECT); Influenza A/H1 Not Detected (NOT DETECT); Influenza A/H3 Not Detected (NOT DETECT); Influenza B Not Detected (NOT DETECT); Mycoplasma pneumoniae Not Detected (NOT DETECT); Parainfluenza Virus 1 Not Detected (NOT DETECT); Parainfluenza Virus 2 Not Detected (NOT DETECT); Parainfluenza Virus 3 Not Detected (NOT DETECT); Parainfluenza Virus 4 Not Detected (NOT DETECT); Respiratory Syncytial Virus Not Detected (NOT DETECT)
--- NOTE | 2019-03-04 05:47 | NUR ---
SHIFT SUMMARY PATIENT AWAKES WITH VERBAL STIMULI. PT REQUESTED BIPAP TO SLEEP. SATS ABOVE 95%. BP 80/50S AFTER 500ML BOLUS. ANOTHER 500ML BOLUS GIVEN. PATIENT PLACED ON LEVOPHED GTT AT STARTED AT 8MCG/HR CURRENTLY AT 5MCG/HR. SBP ABOVE 90. HR 100-110S. LACTIC ACID TRENDING DOWN FROM 5.2 TO 4.7. POTASSIUM, MAG, AND CALCIUM REPLACED. NO OTHER CHANGES AT THIS TIME. WILL CONTINUE TO MONITOR.
[2019-03-04 06:12] LABS: BASOPHILS ABSOLUTE AUTO 0.02 K/mm3 (0.00-0.23); BASOPHILS PERCENT AUTO 0 % (0-2); EOSINOPHILS PERCENT AUTO 0 % (0-6); Hematocrit 39.6 % (37.0-53.0); Hemoglobin 13.3 g/dL (13.5-17.5); IMMATURE GRAN ABSOLUTE AUTO 0.04 K/mm3 (0.00-0.10); IMMATURE GRAN PERCENT AUTO 0 % (0-1); LYMPHOCYTES ABSOLUTE AUTO 0.18 K/mm3 (0.84-5.20); LYMPHOCYTES PERCENT AUTO 1 % (21-46); MONOCYTES ABSOLUTE AUTO 0.13 K/mm3 (0.16-1.47); MONOCYTES PERCENT AUTO 1 % (4-13); Mean Corpuscular HGB 32.4 pg (26.0-34.0); Mean Corpuscular HGB Conc 33.6 g/dL (31.5-36.5); Mean Corpuscular Volume 96 fL (80-100); Mean Platelet Volume 9.7 fL (9.1-12.4); NEUTROPHILS ABSOLUTE AUTO 13.27 K/mm3 (1.96-9.15); NEUTROPHILS PERCENT AUTO 97 % (41-73); Platelet Count 190 K/mm3 (150-400); RDW Coefficient Variation 12.5 % (11.7-14.2); RDW Standard Deviation 44.1 fL (35.1-46.3); Red Blood Cell Count 4.11 M/mm3 (4.30-5.90); White Blood Cell Count 13.64 K/mm3 (4.00-11.30)
[2019-03-04 06:31] LABS: Anion Gap 9 mmol/L (6-16); Blood Urea Nitrogen 14 mg/dL (8-24); CO2, Blood 20 mmol/L (21-32); Calcium, Blood 8.6 mg/dL (8.5-10.1); Chloride, Blood 107 mmol/L (98-108); Creatinine, Blood 0.78 mg/dL (0.60-1.20); Glomerular Filtration Rate >60 (60-); Glucose, Blood 206 mg/dL (70-99); Potassium, Blood 4.3 mmol/L (3.5-5.5); Sodium, Blood 136 mmol/L (136-145); Troponin I 0.052 ng/mL (0.000-0.040)
--- NOTE | 2019-03-04 08:20 | NUR ---
Received report from Noc RN. Partient sleeping post report and awakens to verbal; stimuli. and falls right back to sleep. He is on BIPAP /6 ay FiO2 25% and sats 98%. He has 18ga RAC dressing intact and site WNL's and is infusing LEVOPHED 2 mcg/min, he also has 18ga FS LAC dressing intact and site WNL's and is infusing NS at 75ml/hr. He denies any current needs or pain. With Levophed systolics 100 and MAP >65. VSS. He ususe urinal appropriately.
--- NOTE | 2019-03-04 09:00 | NUR ---
PARTIAL ECHO COMPLETE
--- NOTE | 2019-03-04 09:30 | NUR ---
He is tolerating breakfast well. Turned of Levophed and systolic 100's with MAP > 65. He tolerated meds well and is resting. Pulled off BIPAP for breakfast and placed on RA and sasts upper 90%'s.
--- NOTE | 2019-03-04 12:06 | NUR ---
came by and stated that she was being discharged home. He is awaiting Dr to come by and should be medical status. He continues on RA. He was up to bathroom and denied any SOB. VSS. Levophed remains off and systolic 116 and MAP > 65. He deneis any pain or needs.
--- NOTE | 2019-03-04 12:37 | NUR ---
Patient up out of bed several times without difficulty. VSS. No other significant changes. Dr Aguirre here to see patient.
--- NOTE | 2019-03-04 14:01 | NUR ---
Dr Aguirre by to see patient and has made him med with tele. He is up in chair after PT working with him. VSS
--- NOTE | 2019-03-04 16:30 | NUR ---
No significant changes with patient. He remains on RA and tolerating well. He worked with PT and OT and did well on SOB breifly on way back from walk and cleared quickly with breif rest.
--- NOTE | 2019-03-04 18:34 | NUR ---
Patient remains up in chair and has friend visiting. He is ST and remains on RA and sats upper 90%'s. He denies any current pain or needs.
--- NOTE | 2019-03-04 19:15 | NUR ---
ASSUMED CARE BEDSIDE REPORT RECIEVED. PT IS SITTING UP IN BEDSIDE CHAIR WATCHING TV. PT IS AWAKE, ALERT, AND ORIENTED. PT COMPLAINS OF HEADACHE AT THIS TIME, OTHERWISE DENIES PAIN, NAUSEA, OR SOB. VITAL SIGNS STABLE, HR 100-110'S. PT ON ROOM AIR. PT WITH BIPAP AT BEDSIDE TO WEAR WHILE SLEEPING. IV SALINE LOCKED. NO FAMILY AT BEDSIDE. WILL CONTINUE TO MONITOR.
[2019-03-05 03:55] LABS: BASOPHILS ABSOLUTE AUTO 0.01 K/mm3 (0.00-0.23); BASOPHILS PERCENT AUTO 0 % (0-2); EOSINOPHILS PERCENT AUTO 0 % (0-6); Hematocrit 36.4 % (37.0-53.0); Hemoglobin 12.4 g/dL (13.5-17.5); IMMATURE GRAN ABSOLUTE AUTO 0.26 K/mm3 (0.00-0.10); IMMATURE GRAN PERCENT AUTO 2 % (0-1); LYMPHOCYTES ABSOLUTE AUTO 0.32 K/mm3 (0.84-5.20); LYMPHOCYTES PERCENT AUTO 2 % (21-46); MONOCYTES ABSOLUTE AUTO 0.67 K/mm3 (0.16-1.47); MONOCYTES PERCENT AUTO 4 % (4-13); Mean Corpuscular HGB 32.8 pg (26.0-34.0); Mean Corpuscular HGB Conc 34.1 g/dL (31.5-36.5); Mean Corpuscular Volume 96 fL (80-100); Mean Platelet Volume 9.6 fL (9.1-12.4); NEUTROPHILS ABSOLUTE AUTO 14.48 K/mm3 (1.96-9.15); NEUTROPHILS PERCENT AUTO 92 % (41-73); Platelet Count 165 K/mm3 (150-400); RDW Coefficient Variation 12.9 % (11.7-14.2); RDW Standard Deviation 45.8 fL (35.1-46.3); Red Blood Cell Count 3.78 M/mm3 (4.30-5.90); White Blood Cell Count 15.74 K/mm3 (4.00-11.30)
[2019-03-05 04:17] LABS: Alanine Aminotransfer (ALT/SGP 18 U/L (12-78); Albumin, Blood 3.2 g/dL (3.4-5.0); Albumin/Globulin Ratio 1.3 (0.8-1.8); Alk Phos 52 U/L (50-136); Anion Gap 4 mmol/L (6-16); Aspartate Aminotrans (AST/SGOT 17 U/L (12-37); Bilirubin, Total 0.4 mg/dL (0.1-1.0); Blood Urea Nitrogen 13 mg/dL (8-24); Bun/Creatinine Ratio 19.3 (12.0-20.0); CO2, Blood 26 mmol/L (21-32); Calcium, Blood 8.4 mg/dL (8.5-10.1); Chloride, Blood 111 mmol/L (98-108); Creatinine, Blood 0.67 mg/dL (0.60-1.20); Globulin, Blood 2.4 g/dL (2.2-4.0); Glomerular Filtration Rate >60 (60-); Glucose, Blood 140 mg/dL (70-99); Magnesium, Blood 2.1 mg/dL (1.6-2.4); Phosphorus, Blood 2.4 mg/dL (2.5-4.9); Sodium, Blood 141 mmol/L (136-145); Total Protein, Blood 5.6 g/dL (6.4-8.2)
--- NOTE | 2019-03-05 05:57 | NUR ---
SHIFT SUMMARY NO ACUTE CHANGES THIS SHIFT. PT HAS SLEPT OFF AND ON THIS MORNING. PT HAS REMAINED ALERT AND ORIENTED WHEN AWAKE. VITAL SIGNS HAVE REMAINED STABLE. PT ON ROOM AIR. HR 80-100'S. PT HAS REMAINED ON BIPAP AT 16/6, FIO2 25% THROUGHOUT THE NIGHT WHILE SLEEPING. PT HAS DENIED SOB. PT USING URINAL TO VOID WELL. WILL CONTINUE TO MONITOR AND REPORT OFF TO ONCOMING RN.
--- NOTE | 2019-03-05 11:43 | NUR ---
PATIENT GIVEN D/C PAPERWORK. ALL MEDICATIONS REVIEWED AND PT WAS TOLD ABOUT NEW RX CALLED IN TO [facility]. ALL PATIENT QUESTIONS ANSWERED. AT BEDSIDE FOR D/C EDUCATION, WILL BE DRIVING PT HOME. PATIENT LEFT UNIT VIA W/C AT 1145 WITH ALL PERSONAL POSSESIONS.
== END 2019-03-05 11:45 | disposition home or self-care (01) | DRG 189 ==
LOC: ER 22:08 → ICUE 22:09 → ICUW 22:09 → ICUE 23:55
PROVIDERS: Emergency Medicine; Hospitalist; Nurse Practitioner Acute Care; ADMIT Internal Medicine
DX: J96.01 Acute respiratory failure with hypoxia (principal); J44.1 Chronic obstructive pulmonary disease with (acute) exacerbation; I50.42 Chronic combined systolic (congestive) and diastolic (congestive) heart failure; I47.1 Supraventricular tachycardia; E87.2 Acidosis; E03.9 Hypothyroidism, unspecified; I25.10 Atherosclerotic heart disease of native coronary artery without angina pectoris; I48.0 Paroxysmal atrial fibrillation; E78.00 Pure hypercholesterolemia, unspecified; B97.89 Other viral agents as the cause of diseases classified elsewhere; Z95.1 Presence of aortocoronary bypass graft; Z95.5 Presence of coronary angioplasty implant and graft; Z87.891 Personal history of nicotine dependence; Z79.02 Long term (current) use of antithrombotics/antiplatelets; Z79.82 Long term (current) use of aspirin; Z79.899 Other long term (current) drug therapy; I25.2 Old myocardial infarction
CPT/HCPCS: 0099U; 36415; 71045; 80048; 80053; 83605; 83735; 83880; 84100; 84484; 85025; 87040; 93005; 93010; 93308; 93321; 94640; 94644; 94660; 94664; 94667; 94762; 96361; 96374; 97162; 97165; 97530; 98960; 99285-25; A9270; J0610; J2920; J2930; J3475; J3480; J7030; J7060

== ENCOUNTER 2020-06-03 07:17 | Day surgery (SDC) | payer MEDICARE, OTHER ==
[~2020-06-03] VITALS: Ht 172.7 cm; Wt 59.0 kg
[~2020-06-03 07:17] MED LIST changes: +BECL25NI; +FURO40 PO; +LEVSOD75 PO; -Synthroid50 MCG PO
[2020-06-03] MEDS ORDERED: QVAR REDIHALE10.6 G2 INH (07:47)
--- NOTE | 2020-06-03 13:39 | NUR ---
PT AMB TO BATHROOM /C SBA. TOLERATED WELL. -BLEEDING OR SWELLING R GROIN AREA.
--- NOTE | 2020-06-03 13:42 | NUR ---
PT VERBALIZED UNDERSTANDING OF WRITTEN AND VERBAL D/C INST. IV REMOVED.
--- NOTE | 2020-06-03 13:56 | NUR ---
PT TAKEN OUT OF THE HRT CENTER VIA W/C.
--- NOTE | 2020-06-03 14:06 | NUR ---
PT DRESSED, DC'D BY WC WITH DRIVING PT HOME
== END 2020-06-03 14:20 | disposition home or self-care (01) ==
LOC: MHTC 07:17
DX: I25.708 Atherosclerosis of coronary artery bypass graft(s), unspecified, with other forms of angina pectoris (principal); I25.5 Ischemic cardiomyopathy; R93.1 Abnormal findings on diagnostic imaging of heart and coronary circulation; J44.9 Chronic obstructive pulmonary disease, unspecified; I10 Essential (primary) hypertension; I25.10 Atherosclerotic heart disease of native coronary artery without angina pectoris; E78.5 Hyperlipidemia, unspecified; Z95.1 Presence of aortocoronary bypass graft
CPT/HCPCS: 76937; 93455; 99152; 99153; A9270; C1760; C1769; C1894; G0278; J2250; J3010; Q9967

== ENCOUNTER → 2022-04-19 | Outpatient (CLI) | payer MEDICARE, OTHER ==
[~2022-04-19] MED LIST changes: +QVAR REDIHALE10.6 G2 INH
== END | disposition home or self-care (01) ==
LOC: LAB SHORT 15:45 → LAB 15:45
DX: L02.31 Cutaneous abscess of buttock (principal)
CPT/HCPCS: 87070; 87075; 87205

== ENCOUNTER 2022-05-09 17:46 | Inpatient (IN) | payer MEDICARE, OTHER ==
[~2022-05-09] VITALS: Ht 172.7 cm; Wt 64.6 kg
[~2022-05-09 17:46] MED LIST changes: +POTA10T PO; -POTCHL10ER PO
[2022-05-09 18:09] LABS: BASOPHILS ABSOLUTE AUTO 0.04 K/mm3 (0.00-0.23); BASOPHILS PERCENT AUTO 1 % (0-2); EOSINOPHILS ABSOLUTE AUTO 0.09 K/mm3 (0.00-0.68); EOSINOPHILS PERCENT AUTO 1 % (0-6); Hematocrit 45.6 % (37.0-53.0); Hemoglobin 15.4 g/dL (13.5-17.5); IMMATURE GRAN ABSOLUTE AUTO 0.05 K/mm3 (0.00-0.10); IMMATURE GRAN PERCENT AUTO 1 % (0-1); LYMPHOCYTES ABSOLUTE AUTO 0.96 K/mm3 (0.84-5.20); LYMPHOCYTES PERCENT AUTO 13 % (21-46); MONOCYTES ABSOLUTE AUTO 0.87 K/mm3 (0.16-1.47); MONOCYTES PERCENT AUTO 11 % (4-13); Mean Corpuscular HGB 32.5 pg (26.0-34.0); Mean Corpuscular HGB Conc 33.8 g/dL (31.5-36.5); Mean Corpuscular Volume 96 fL (80-100); NEUTROPHILS ABSOLUTE AUTO 5.67 K/mm3 (1.96-9.15); NEUTROPHILS PERCENT AUTO 74 % (41-73); Platelet Count 252 K/mm3 (150-400); RDW Standard Deviation 46.4 fL (35.1-46.3); Red Blood Cell Count 4.74 M/mm3 (4.30-5.90); White Blood Cell Count 7.68 K/mm3 (4.00-11.30)
[2022-05-09 18:12] LABS: Base Excess Venous 3.5 mmol/L; Bicarbonate Venous 25.9 mmol/L (24.0-30.0); PCO2 Venous 48.8 mmHg (38-42); pH Blood Venous 7.38 (7.34-7.37)
[2022-05-09 18:30] LABS: Albumin, Blood 3.9 g/dL (3.4-5.0); Albumin/Globulin Ratio 1.3 (0.8-1.8); Bilirubin, Total 0.3 mg/dL (0.1-1.0); Bun/Creatinine Ratio 19.6 (12.0-20.0); Calcium, Blood 9.4 mg/dL (8.5-10.1); Creatinine, Blood 0.92 mg/dL (0.60-1.20); Globulin, Blood 3.1 g/dL (2.2-4.0); Potassium, Blood 4.3 mmol/L (3.5-5.5)
[2022-05-09 18:58] LABS: Influenza A, PCR NEGATIVE (NEGATIVE); Influenza B, PCR NEGATIVE (NEGATIVE); Resp Syncytial Virus, PCR NEGATIVE (NEGATIVE); SARS-Cov-2 (COVID-19) PCR, MMC NEGATIVE (NEGATIVE)
[2022-05-09] MEDS ORDERED: MEGE40T (21:42)
[2022-05-09] MEDS ORDERED: MIRT15 PO (23:18)
[2022-05-10 04:15] LABS: Hematocrit 40.1 % (37.0-53.0); Hemoglobin 13.8 g/dL (13.5-17.5); Mean Corpuscular HGB 32.7 pg (26.0-34.0); Mean Corpuscular HGB Conc 34.4 g/dL (31.5-36.5); Mean Corpuscular Volume 95 fL (80-100); Mean Platelet Volume 9.3 fL (9.1-12.4); Platelet Count 225 K/mm3 (150-400); RDW Standard Deviation 44.8 fL (35.1-46.3); Red Blood Cell Count 4.22 M/mm3 (4.30-5.90); White Blood Cell Count 4.46 K/mm3 (4.00-11.30)
[2022-05-10 04:37] LABS: Bun/Creatinine Ratio 18.4 (12.0-20.0); Creatinine, Blood 0.87 mg/dL (0.60-1.20); Potassium, Blood 4.8 mmol/L (3.5-5.5)
--- NOTE | 2022-05-10 04:40 | NUR ---
SHIFT SUMMARY PATIENT SLEPT T/O SHIFT. MEDICATIONS WERE UPDATED WITH PATIENT'S , JAROCHO. JAROCHO INSTRUCTED TO BRING PATIENT'S TRILOGY MACHINE AND INHALER. MAGNESIUM 1,000MG GIVEN UPON ARRIVAL FROM ER. PATIENT REMAINS ON 2LPM VIA NC WITH NO DYSPNEA AND SPO2 HIGH 90'S-100.
--- NOTE | 2022-05-10 10:02 | NUR ---
CARE ASSUMPTION THIS RN ASSUMED CARE AT 0700. VSS. SPO2 >90% ON RA,ONCE PATIENT GOT OUT OF BED TO CHAIR PATIENT REMOVED OXYGEN AND SPO2 REMAINED GREATER THAN 90%. PATIENT IS ALER AND ORIENTED X4. PATIENT REPORTS NO PAIN, SHORTNESS OF BREATH, OR CHEST PAIN/PRESSURE. SKIN IS CLEAN DRY AND INTACT. ABD IS SOFT NONTENDER AND ACTIVE. PATIENT IS INDEPDENT. PATIEN USES CALL LIGHT APPROPRIATELY. PLAN OF CARE IS UP TO DATE. CALL LIGHT WITHIN REACH AND BED IN LOWEST POSITION.
--- NOTE | 2022-05-10 15:50 | NUR ---
SHIFT SUMMARY PATIENT NEURO REMAINS INTACT. NO ACUTE CHANGES DURING THIS SHIFT. VITAL SIGNS REMAIN STABLE. CALL LIGHT WITHIN REACH.
[2022-05-11 04:03] LABS: BASOPHILS ABSOLUTE AUTO 0.01 K/mm3 (0.00-0.23); BASOPHILS PERCENT AUTO 0 % (0-2); EOSINOPHILS PERCENT AUTO 0 % (0-6); Hematocrit 37.3 % (37.0-53.0); Hemoglobin 12.9 g/dL (13.5-17.5); IMMATURE GRAN ABSOLUTE AUTO 0.04 K/mm3 (0.00-0.10); IMMATURE GRAN PERCENT AUTO 0 % (0-1); LYMPHOCYTES ABSOLUTE AUTO 0.29 K/mm3 (0.84-5.20); LYMPHOCYTES PERCENT AUTO 3 % (21-46); MONOCYTES ABSOLUTE AUTO 0.53 K/mm3 (0.16-1.47); MONOCYTES PERCENT AUTO 5 % (4-13); Mean Corpuscular HGB 32.7 pg (26.0-34.0); Mean Corpuscular HGB Conc 34.6 g/dL (31.5-36.5); Mean Corpuscular Volume 95 fL (80-100); NEUTROPHILS ABSOLUTE AUTO 9.35 K/mm3 (1.96-9.15); NEUTROPHILS PERCENT AUTO 92 % (41-73); Platelet Count 226 K/mm3 (150-400); RDW Coefficient Variation 13.3 % (11.7-14.2); Red Blood Cell Count 3.94 M/mm3 (4.30-5.90); White Blood Cell Count 10.22 K/mm3 (4.00-11.30)
[2022-05-11 04:59] LABS: Bun/Creatinine Ratio 32.4 (12.0-20.0); Calcium, Blood 8.7 mg/dL (8.5-10.1); Creatinine, Blood 0.83 mg/dL (0.60-1.20); Potassium, Blood 4.7 mmol/L (3.5-5.5)
--- NOTE | 2022-05-11 05:45 | NUR ---
SHIFT SUMMARY PATIENT ALERT AND ORIENTED FULLY. PATIENT SR/ST ON MONITOR. HR 80-110'S. BP STABLE. AFEBRILE. PATIENT WITH MOIST NONPRODUCTIVE COUGH. NOSEBLEEDS THROUGHOUT THIS SHIFT; PATIENT STATES THIS IS NORMAL FOR HIM. PATIENT CALLING APPROPRIATELY. USING URINAL INDEPENDENTLY. PATIENT USED HOME TRILOGY THROUGHOUT THE NIGHT, ABLE TO MANAGE DEVICE INDEPENDENTLY. MEDICATING PER EMAR. BED IN LOWEST POSITION AND CALL LIGHT WITHING REACH. THIS RN WILL CONTINUE TO MONITOR UNTIL SHIFT CHANGE AT 0700.
--- NOTE | 2022-05-11 10:09 | NUR ---
CARE ASSUMPTION THIS RN ASSUMED CARE AT 0700. VSS. SPO2 >90% ON RA. TELE SR/ST WITH PVCS. PATIENT IS ALERT AND ORIENTED X4. PATIENT REPORTS NO PAIN. PATIENT REPORTS NO CHEST PAIN/PRESSURE. PATIENT REPORTS NO SHORTNESS OF BREATH AT REST, BUT WITH ACTIVITY BECOMES SHORT OF BREATH. PATIENT SKIN IS CLEAN DRY AND INTACT. THERE IS A BRUISE ON LEFT SIDE OF ABD FROM LOVENOX SHOT. ABD IS SOFT NONTENDER AND ACTIVE. SEE SHIFT ASSESSMENT FOR FURTHER DETIALS. PATIENT UPDATED ON PLAN OF CARE. PATIENT INDEPDENT IN ADLS. PATIENT USES CALL LIGHT APPROPAITELY AND IS ABLE TO MAKE NEEDS KNOWN. PATIENT SITTING IN CHAIR. CALL LIGHT WITHIN REACH.
--- NOTE | 2022-05-11 10:16 | NUR ---
CARE ASSUMPTION THIS RN ASSUMED CARE AT 0700. SPO2 >90% ON RA. TELE. PATIENT IS ALERT AND ORIENTED X4. PATIENT REPORTS NO PAIN. PATIENT REPORTS NO SHORTNESS OF BREATH AT REST, BUT WITH ACTIVITY BECOMES SHORT OF BREATH. PATIENT REPORTS NO CHEST PAIN/PRESSURE. SEE SHIFT ASSESSMENT FOR FURTHER DETIALS. PLAN OF CARE IS UP TO DATE AND PATIENT UPDATED. PATIENT IS INDEPDENT IN ADLS AND CALLS WHEN NEEDING ASSISTANCE. CALL LIGHT WITHIN REACH.
[2022-05-11] MEDS ORDERED: APAP500 MG PO (13:24)
[2022-05-11] MEDS ORDERED: CEFP200 PO (13:25)
[2022-05-11] MEDS ORDERED: PRED20 PO (13:25)
--- NOTE | 2022-05-11 14:05 | NUR ---
DISCHARGE THIS RN WENT OVER DISCHARGE EDUCATION WITH THE PATIENT AND PATIENTS . PATIENT AND PATIENT VERBALIZED UNDERSTANDING. PATIENT TOOK ALL BELONGINGS WITH THEM WHEN LEAVING. NO ACUTE CHANGES IN PATIENT SINCE THIS RN ASSUMED CARE. PATIENT VITALS REMAINED STABLE AND PATIENT LEFT IN NO DISTRESS VIA WHEELCHAIR. PATIENT AND ALL BELONGINGS INCLUDING HOME TRIOLOGY WHEN LEAVING. PATIENT IV WAS REMOVED AND TIP WAS INTACT. PATIENT LEFT WITH DISCHARGE INSTRUCTIONS.
== END 2022-05-11 14:04 | disposition home or self-care (01) | DRG 189 ==
LOC: ER 17:46 → PCU 21:41
PROVIDERS: Internal Medicine; Student in an Organized Health Care Education/Training Program; ADMIT Internal Medicine
PROC: 5A09357 Assistance with Respiratory Ventilation, Less than 24 Consecutive Hours, Continuous Positive Airway Pressure (ICD-10-PCS; principal; 2022-05-09)
DX: J96.21 Acute and chronic respiratory failure with hypoxia (principal); J44.1 Chronic obstructive pulmonary disease with (acute) exacerbation; I50.42 Chronic combined systolic (congestive) and diastolic (congestive) heart failure; I48.92 Unspecified atrial flutter; I25.10 Atherosclerotic heart disease of native coronary artery without angina pectoris; I11.0 Hypertensive heart disease with heart failure; Z66 Do not resuscitate; E78.00 Pure hypercholesterolemia, unspecified; M47.816 Spondylosis without myelopathy or radiculopathy, lumbar region; E03.9 Hypothyroidism, unspecified; I48.0 Paroxysmal atrial fibrillation; Z20.822 Contact with and (suspected) exposure to COVID-19; Z79.899 Other long term (current) drug therapy; Z79.82 Long term (current) use of aspirin; Z79.51 Long term (current) use of inhaled steroids; Z79.01 Long term (current) use of anticoagulants; I25.2 Old myocardial infarction; Z95.1 Presence of aortocoronary bypass graft; Z87.442 Personal history of urinary calculi; Z87.891 Personal history of nicotine dependence; Z98.890 Other specified postprocedural states; Z95.5 Presence of coronary angioplasty implant and graft
CPT/HCPCS: 0241U; 36415; 71045; 80048; 80053; 82803; 83880; 84484; 85025; 85027; 93005; 93010; 94640; 94660; 94762; 96374; 96375; 99285-25; A9270; J0696; J1650; J2930; J3475

== ENCOUNTER 2022-11-08 22:26 | Inpatient (IN) | payer MEDICARE, OTHER ==
[~2022-11-08] VITALS: Ht 172.7 cm; Wt 65.5 kg
[~2022-11-08 22:26] MED LIST changes: +APAP500 MG PO; +CEFP200 PO; +MEGE40T; +MIRT15 PO
[2022-11-08 22:53] LABS: Base Excess Venous -10.5 mmol/L; Bicarbonate Venous 16.8 mmol/L (24.0-30.0); PCO2 Venous 27.1 mmHg (38-42); pH Blood Venous 7.35 (7.34-7.37)
[2022-11-08 23:01] LABS: Albumin, Blood 3.6 g/dL (3.4-5.0); Albumin/Globulin Ratio 1.2 (0.8-1.8); Bilirubin, Total 0.6 mg/dL (0.1-1.0); Bun/Creatinine Ratio 18.4 (12.0-20.0); Calcium, Blood 8.9 mg/dL (8.5-10.1); Creatinine, Blood 1.36 mg/dL (0.60-1.20); Globulin, Blood 3.1 g/dL (2.2-4.0); Potassium, Blood 4.2 mmol/L (3.5-5.5); Total Protein, Blood 6.7 g/dL (6.4-8.2)
[2022-11-08 23:26] LABS: BASOPHILS PERCENT AUTO 1 % (0-2); EOSINOPHILS PERCENT AUTO 1 % (0-6); Hematocrit 42.4 % (37.0-53.0); Hemoglobin 14.8 g/dL (13.5-17.5); IMMATURE GRAN ABSOLUTE AUTO 0.24 K/mm3 (0.00-0.10); IMMATURE GRAN PERCENT AUTO 2 % (0-1); LYMPHOCYTES ABSOLUTE AUTO 2.16 K/mm3 (0.84-5.20); LYMPHOCYTES PERCENT AUTO 17 % (21-46); MONOCYTES PERCENT AUTO 10 % (4-13); Mean Corpuscular HGB 33.6 pg (26.0-34.0); Mean Corpuscular HGB Conc 34.9 g/dL (31.5-36.5); Mean Corpuscular Volume 96 fL (80-100); NEUTROPHILS ABSOLUTE AUTO 8.71 K/mm3 (1.96-9.15); NEUTROPHILS PERCENT AUTO 70 % (41-73); NRBC ABSOLUTE 0.02 K/mm3 (0.00-0.02); NRBC Auto 0.2 /100 WBC (0.0-0.2); RDW Coefficient Variation 14.8 % (11.7-14.2); RDW Standard Deviation 53.1 fL (35.1-46.3); Red Blood Cell Count 4.41 M/mm3 (4.30-5.90); White Blood Cell Count 12.51 K/mm3 (4.00-11.30)
[2022-11-08 23:30] LABS: Mean Platelet Volume 10.6 fL (9.1-12.4)
[2022-11-09] VITALS (7 sets, daily range): BP systolic 87–146; BP diastolic 64–94
[2022-11-09 00:14] LABS: Platelet Count 248 K/mm3 (150-400)
--- NOTE | 2022-11-09 06:18 | NUR ---
END OF SHIFT SUMMARY A/O X4. PLEASANT AND COOPERATIVE WITH CARE. PT RESTED IN BED WITH MINIMAL BREATHING ISSUES SINCE ANDMISSION. CPAP MACHIE IN PLACE WITH NO REST AWAY. PT IS NPO WITH NOTHING BY MOUTH SINCE ADMIT TO PCU. SPO2 >93% THROUGHOUT SHIFT. SR WITH HR 90'S. SBP 90-100'S WITH MAP >65. THIS RN DID NOT AMBULATE PT THIS SHIFT D/T RESP NEEDS. BED IN LOW POSITION. CALL LIGHT WITHIN REACH. PT DAUGHTER AND SPOUSE ARE PLANNING ON VISITING THIS MORNING. WILL CONTINUE TO MONITOR UNTIL REPORT GIVEN TO AM RN.
--- NOTE | 2022-11-09 11:22 | NUR ---
"Spiritual Care Visit | Pt. Request Pt. is awake in bed and welcomes my visit. Pt. is pleasant. Facilitated a lengthy life review. Listened with empathy, interest and an calm presence. Pt. displays evidence of hope and nicky in his life. Pt. request that this commercial construction estimator contact him city secretary about his current hospitalization. Prayed with Pt. Pt. verbalized gratitude for the spiritual care visit. This commercial construction estimator communicated to the Pts. city secretary."
[2022-11-09 11:44] LABS: BASOPHILS ABSOLUTE AUTO 0.01 K/mm3 (0.00-0.23); BASOPHILS PERCENT AUTO 0 % (0-2); EOSINOPHILS PERCENT AUTO 0 % (0-6); Hematocrit 41.9 % (37.0-53.0); Hemoglobin 14.4 g/dL (13.5-17.5); IMMATURE GRAN ABSOLUTE AUTO 0.08 K/mm3 (0.00-0.10); IMMATURE GRAN PERCENT AUTO 1 % (0-1); LYMPHOCYTES ABSOLUTE AUTO 0.37 K/mm3 (0.84-5.20); LYMPHOCYTES PERCENT AUTO 6 % (21-46); MONOCYTES PERCENT AUTO 2 % (4-13); Mean Corpuscular HGB 32.9 pg (26.0-34.0); Mean Corpuscular HGB Conc 34.4 g/dL (31.5-36.5); Mean Corpuscular Volume 96 fL (80-100); Mean Platelet Volume 9.3 fL (9.1-12.4); NEUTROPHILS ABSOLUTE AUTO 6.19 K/mm3 (1.96-9.15); NEUTROPHILS PERCENT AUTO 92 % (41-73); Platelet Count 245 K/mm3 (150-400); RDW Coefficient Variation 14.7 % (11.7-14.2); RDW Standard Deviation 52.3 fL (35.1-46.3); Red Blood Cell Count 4.38 M/mm3 (4.30-5.90); White Blood Cell Count 6.75 K/mm3 (4.00-11.30)
[2022-11-09 12:10] LABS: Albumin, Blood 3.7 g/dL (3.4-5.0); Albumin/Globulin Ratio 1.2 (0.8-1.8); Bilirubin, Total 0.6 mg/dL (0.1-1.0); Bun/Creatinine Ratio 24.1 (12.0-20.0); Calcium, Blood 9.1 mg/dL (8.5-10.1); Creatinine, Blood 1.08 mg/dL (0.60-1.20); Globulin, Blood 3.2 g/dL (2.2-4.0); Potassium, Blood 4.5 mmol/L (3.5-5.5); Total Protein, Blood 6.9 g/dL (6.4-8.2)
--- NOTE | 2022-11-09 18:25 | NUR ---
PT HAS BEEN RESTING WELL IN BED T/O THE DAY. HE DOES HAVE SOME EPISODES OF WHEEZING AND AIR HUNGER TODAY WHICH WAS RESOLVED WITH BREATHING TREATMENTS, AND CODIENE COUGH SYRUP. PT REMAINS ON RA ALL DAY WITH SPO2 GREATER THAN 97%. PT UP TO BEDSIDE COMMODE WITHOUT DIFFICULTY TODAY. HE IS A/O X4. NO EDEMA NOTED TO EXTREMETIES. HE DENIES CP. DENIES PAIN. VSS. NADN. HE HAS HAD EVEN RISE AND FALL OF CHEST WITH RESIPRATIONS T/O THE DAY, EVEN DURING AIR HUNGER EPISODE THIS AFTERNOON.
[2022-11-10 02:43] VITALS: BP 114/94
--- NOTE | 2022-11-10 05:25 | NUR ---
SHIFT SUMMARY: Pt slept most of the night. No anxiety attacks or dyspneic episodes tonight. He is using his home trilogy while sleeping, vitals stable. Voiding and had a bowel movement on the commode. Denies pain or discomfort, pleasant and cooperative.
[2022-11-10 09:05] VITALS: BP 111/72
[2022-11-10 13:27] VITALS: BP 125/87
--- NOTE | 2022-11-10 16:58 | NUR ---
MEDICATIONS ESCRIBED AND FAXED TO [facility]. PT AND FAMILY EXPRESSED UNDERSTANDING OF DC TEACHING.
== END 2022-11-10 13:50 | disposition home or self-care (01) | DRG 189 ==
LOC: ER 22:26 → PCU 23:40
PROVIDERS: Emergency Medicine; ADMIT Internal Medicine
PROC: 5A09457 Assistance with Respiratory Ventilation, 24-96 Consecutive Hours, Continuous Positive Airway Pressure (ICD-10-PCS; principal; 2022-11-08)
DX: J96.01 Acute respiratory failure with hypoxia (principal); J44.1 Chronic obstructive pulmonary disease with (acute) exacerbation; I48.92 Unspecified atrial flutter; I50.42 Chronic combined systolic (congestive) and diastolic (congestive) heart failure; I11.0 Hypertensive heart disease with heart failure; I25.10 Atherosclerotic heart disease of native coronary artery without angina pectoris; I48.91 Unspecified atrial fibrillation; Z66 Do not resuscitate; E78.00 Pure hypercholesterolemia, unspecified; M54.50 Low back pain, unspecified; G89.29 Other chronic pain; E03.9 Hypothyroidism, unspecified; I25.5 Ischemic cardiomyopathy; I25.2 Old myocardial infarction; Z95.5 Presence of coronary angioplasty implant and graft; Z95.1 Presence of aortocoronary bypass graft; Z98.890 Other specified postprocedural states; Z87.891 Personal history of nicotine dependence; Z79.52 Long term (current) use of systemic steroids; Z79.82 Long term (current) use of aspirin; Z79.890 Hormone replacement therapy; Z79.899 Other long term (current) drug therapy
CPT/HCPCS: 36415; 71045; 80053; 82803; 83880; 84484; 85025; 93005; 93010; 94640; 94644; 94660; 94664; 94762; 99291-25; A9270; J0456; J1650; J2930; J7050